=== PATIENT | male | born 1970 | race Asian ===

== ENCOUNTER → 2016-09-07 | Outpatient (CLI) | payer OTHER ==
[~2016-09-07] MED LIST: Bentyl PO; CRESTOR20 MG PO; FLOMAX0.4 MG PO; METOPROLOL SUCCINATE; PERCOCET 5/31 TABLET PO; Prevacid PO; ZOFRAN ODT4 MG PO
== END | disposition home or self-care (01) ==
LOC: RES 09:31
DX: J45.909 Unspecified asthma, uncomplicated (principal)
CPT/HCPCS: 94010; 94070; 94726; 94729